=== PATIENT | male | born 1990 | race Caucasian/White ===

== ENCOUNTER 2016-07-26 07:31 | Inpatient (IN) | payer OTHER ==
[2016-07-26] VITALS (8 sets, daily range): BP systolic 65–123; BP diastolic 42–64
[~2016-07-26] VITALS: Ht 165.1 cm; Wt 93.9 kg
--- NOTE | ~2016-07-26 | H ---
[facility] [place] [address] HISTORY AND PHYSICAL Name: MALINA GRIFFIN Room #: 243-P ADM IN M.R.#: [id number] Admission: 07/26/16 Attend Phys: Richardson Clarke MD Discharge: Date of : 89 Report #: [id number] THIS REPORT FOR: //name// CC: Dr. Donovan FAM unknown Richardson Clarke DATE OF SERVICE: 07/26/2016 CHIEF COMPLAINT: Overdose and alcohol intoxication. HISTORY OF PRESENT ILLNESS: The patient is a 25-year-old male with no significant past medical history, initially presented to [facility] secondary to drug overdose and alcoholism. The patient was apparently brought into the emergency room at [facility] at around 04:55 by his girlfriend unresponsive. Apparently, they were able to arouse him to sternal rub and then he was brought into the emergency room. According to the girlfriend, the patient took 10-15 of 4 mg girlfriend's tizanidine and he also took 4 of girlfriend's tramadol 50 mg tablet. The patient stated that he has been under lot of stress lately and apparently looking for a job. No history of any depression in the past. No history of any suicidal ideation in the past. According to the notes from [facility], the patient did state to the girlfriend that "I don't care if I live". The patient at present denies any suicidal ideation to me. He is awake, alert and oriented times 3. He is very appropriate and pleasant. The patient also had like 15 beers last night. He also had some [place]. The patient denies any dizziness now. No chest pain or shortness of breath. PAST MEDICAL HISTORY: No hypertension. No diabetes No history of any psychiatric disorder in the past. History of hernia repair. ALLERGIES: No known drug allergy. HOME MEDICATIONS: None. SOCIAL HISTORY: He smokes cigarettes, a few cigarettes a day. He drinks at the weekends. He occasionally uses marijuana. FAMILY HISTORY: Significant for hypertension and heart disease. REVIEW OF SYSTEMS: CONSTITUTIONAL: No recent weight loss or weight gain. No fever or chills. EYES: No change in vision. THROAT: Denies any sore throat. CARDIOVASCULAR: No chest pain, dizziness or palpitations. [facility] [address] [place] [address] HISTORY AND PHYSICAL Name: MALINA GRIFFIN Room #: [address] [place] [address] [place] .R.#: [id number] Admission: 07/26/16 Attend Phys: Richardson Clarke MD Discharge: Date of : 89 Report #: [id number] RESPIRATORY: No cough or expectoration. GASTROINTESTINAL: No nausea or vomiting. GENITOURINARY: No dysuria or hematuria. NEUROLOGIC: No focal numbness or weakness of the extremities. PSYCHIATRIC: No complaints of depression at present. He has been under a lot of stress. The 12-point review of system is negative, other than the positive and negative dictated in the history of present illness and in the review of systems. PHYSICAL EXAMINATION: VITAL SIGNS: Reviewed. Blood pressure is stable. GENERAL: He is awake and alert, not in acute respiratory distress. EYES: Pupils equal and reactive to light, nonicteric conjunctivae. NECK: Supple. No JVD, no bruit and no lymphadenopathy. CARDIOVASCULAR SYSTEM: S1, S2. No S3. No murmur. CHEST: Bilateral air entry present. Clear on auscultation. ABDOMEN: Soft. Bowel sounds present. No mass. No organomegaly. No tenderness. PERIPHERY: No pedal edema. No calf tenderness. Dorsalis pedis 1+. NEUROLOGICAL EXAMINATION: The patient is awake, alert and oriented times 3. He follows simple commands. No focal neurological deficit. ORAL EXAMINATION: The patient has dry oral mucosa. LABORATORY DATA: Labs reviewed. These labs were done at [facility]. EKG showed sinus rhythm, rate of 64 per minute. Normal QTC. No significant ST-segment or T-wave changes. Chest x-ray done at [facility] showed lower lung volumes. His alcohol level was 230 and blood glucose of 142. Creatinine is 1.07, potassium was 3.5. Albumin is 4.5. AST and ALT were within normal limit. Urine drug screen was negative. White count 9.23, hemoglobin is 14.2 and platelets 234,000. ASSESSMENT AND PLAN: 1. Intentional overdose of tizanidine and tramadol/alcoholism. The patient to be monitored closely in the ICU. We will hydrate him with IV fluids. We will repeat his electrolytes and liver enzymes this afternoon. We will advance his diet as his mental status improves. 2. Depression and intentional overdose. We will consult psychiatrist. 3. Alcohol overdose. Again, he will be hydrated with IV fluid and monitored closely. [facility] [address] [place] [address] HISTORY AND PHYSICAL Name: MALINA GRIFFIN Room #: [facility] IN M.R.#: [id number] Admission: 07/26/16 Attend Phys: Richardson Clarke MD Discharge: Date of : 89 Report #: [id number] 4. Deep venous thrombosis prophylaxis. He will be on SCDs on the legs for DVT prophylaxis. Treatment plan has been explained to the patient in detail. <ELECTRONICALLY SIGNED> By: Chandana Koehler MD 07/26/16 1134 [id number] Chandana Koehler MD /nt
[2016-07-26 16:29] LABS: ALBUMIN 3.3 g/dL (3.4-5.0); CALCIUM 8.2 mg/dL (8.5-10.1); CREATININE 0.9 mg/dL (0.6-1.3); MAGNESIUM 1.9 mg/dL (1.8-2.4); POTASSIUM 4.2 mmol/L (3.5-5.1); TOTAL BILIRUBIN 0.4 mg/dL (<0.1-1.0)
[2016-07-26 17:36] LABS: ACETAMINOPHEN 2 ug/mL (10-30); SALICYLATE < 2.8 mg/dL (2.8-20.0)
[2016-07-27 04:00] VITALS: BP 11/60; BP 111/60
[2016-07-27 05:28] LABS: ABSOLUTE NEUTROPHILS 7.7 thou/uL (1.4-8.2); BASOPHILS 0.5 % (0.0-2.0); EOSINOPHILS 3.3 % (0.0-3.0); HEMATOCRIT 43.4 % (42.0-52.0); HEMOGLOBIN 14.6 gm/dL (14.0-18.0); LYMPHOCYTES 17.2 % (24.0-44.0); MCHC 33.6 % (28.0-37.0); MCV 89.2 fL (80.0-100.0); MONOCYTES 7.7 % (1.0-8.0); PLATELET COUNT 172 thou/uL (150-400); POLYS 71.3 % (36.0-66.0); RBC 4.86 mil/uL (4.50-6.00); RDW 13.3 % (10.5-14.5); WBC 10.8 thou/uL (4.0-11.0)
[2016-07-27 05:49] LABS: ALBUMIN 3.4 g/dL (3.4-5.0); CALCIUM 8.7 mg/dL (8.5-10.1); MAGNESIUM 1.8 mg/dL (1.8-2.4); POTASSIUM 4.1 mmol/L (3.5-5.1); TOTAL BILIRUBIN 0.5 mg/dL (<0.1-1.0); TOTAL PROTEIN 6.3 g/dL (6.4-8.2)
[2016-07-27 06:03] LABS: MANUAL DIFF NO
[2016-07-27 07:22] VITALS: BP 116/58
[2016-07-27 12:31] VITALS: BP 116/58
== END 2016-07-27 13:57 | disposition home or self-care (01) | DRG 918 ==
LOC: ICU 07:31 → 4E 08:49 → ICU 08:49 → 4E 19:03
PROVIDERS: Hospitalist; Internal Medicine
DX: T42.8X2A Poisoning by antiparkinsonism drugs and other central muscle-tone depressants, intentional self-harm, initial encounter (principal); F32.9 Major depressive disorder, single episode, unspecified; F43.22 Adjustment disorder with anxiety; F10.129 Alcohol abuse with intoxication, unspecified; Y90.9 Presence of alcohol in blood, level not specified; T40.4X2A Poisoning by other synthetic narcotics, intentional self-harm, initial encounter; T51.92XA Toxic effect of unspecified alcohol, intentional self-harm, initial encounter; F17.210 Nicotine dependence, cigarettes, uncomplicated; F12.90 Cannabis use, unspecified, uncomplicated; Y92.89 Other specified places as the place of occurrence of the external cause; Z98.890 Other specified postprocedural states; Z82.49 Family history of ischemic heart disease and other diseases of the circulatory system
CPT/HCPCS: 10183